=== PATIENT | male | born 1985 | race Caucasian/White ===

== ENCOUNTER 2017-05-08 11:00 | Emergency (ER) | payer SELFPAY ==
[~2017-05-08] VITALS: Ht 185.4 cm; Wt 120.9 kg
[2017-05-08 11:04] VITALS: TEMP 37.2; Ht 185.4 cm; Wt 120.9 kg
[2017-05-08] MEDS ORDERED: BUPR1SUB23 SL (11:17)
--- NOTE | 2017-05-08 11:42 | EMERGENCY ROOM VISIT NOTE ---
History Report prepared by Álvaro: Lydia Henry Under the Supervision of: Dr. Felice Huntley M.D. First contact with patient: 11:07 Chief Complaint: ILLNESS Stated Complaint: TICK BITE, FATIGUE History of Present Illness The patient is a 32 year old male who presents to the Emergency Room with complaints of a worsening illness for the past month. He states that he felt more fatigued and tired for the past month. This is very unusual for him. The patient is outside a lot and states that he has had about 20 ticks this past year. 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 He took doxycycline at that time. His current symptoms feel very similar to how he felt with Lyme disease. Source of History: patient Onset: 1 month ago Position: other (global) Quality: other (illness) Timing: worsening Associated Symptoms: + fatigue Review of Systems All systems have been listed, reviewed, and are negative other than those previously mentioned. Please see Additional Medical History Sheet. Past Medical & Surgical Medical Problems: (1) Up's palsy (2) Lyme disease Family History Hypertension Social History Smoking Status: Current Every Day Smoker Alcohol Use: none Marital Status: in relationship Housing Status: lives with significant other Occupation Status: employed Current/Historical Medications Scheduled Buprenorphine Hcl-Naloxone Hcl (Suboxone 8-2 Mg), 1 DOSE SL BID Allergies Uncoded Allergies: NKDA (Allergy, Mild, 04/26/08) Physical Exam Vital Signs Date Time Temp Pulse Resp B/P (MAP) Pulse Ox O2 Delivery O2 Flow Rate FiO2 05/08/17 11:57 74 18 149/96 99 05/08/17 11:04 37.2 86 18 176/94 98 Room Air Physical Exam GENERAL: Patient awake, alert, oriented x 3. Patient follows commands. Patient does not appear toxic. Patient is adequately hydrated and well- nourished. SKIN: No erythema, pallor, cyanosis or rash. No signs of any current insect infestation. HEENT: Normal head, pupils equal, reactive to light and accommodation. LUNGS: Clear to auscultation. No wheezes, no rales, no rhonchi. HEART: No murmurs. No gallops. No rubs ABDOMEN: Soft, non tender. EXTREMITIES: No signs of trauma. No pedal or pretibial edema. No calf or thigh tenderness. NEUROLOGIC: Cranial nerves II-XII within normal limits. No gross motor sensory function deficits. Medical Decision & Procedures Laboratory Results 05/08/17 11:30 Red Blood Count 4.97, Mean Corpuscular Volume 89.7, Mean Corpuscular Hemoglobin 32.8, Mean Corpuscular Hemoglobin Concent 36.5, Mean Platelet Volume 10.4, Neutrophils (%) (Auto) 54.5, Lymphocytes (%) (Auto) 33.4, Monocytes (%) (Auto) 8.0, Eosinophils (%) (Auto) 3.6, Basophils (%) (Auto) 0.3, Neutrophils # (Auto) 4.77, Lymphocytes # (Auto) 2.93, Monocytes # (Auto) 0.70, Eosinophils # (Auto) 0.32, Basophils # (Auto) 0.03 Test 05/08/17 11:30 White Blood Count 8.77 K/uL (4.8-10.8) Red Blood Count 4.97 M/uL (4.7-6.1) Hemoglobin 16.3 g/dL (14.0-18.0) Hematocrit 44.6 % (42-52) Mean Corpuscular Volume 89.7 fL (80-100) Mean Corpuscular Hemoglobin 32.8 pg (25-34) Mean Corpuscular Hemoglobin Concent 36.5 g/dl (32-36) Platelet Count 206 K/uL (130-400) Mean Platelet Volume 10.4 fL (7.4-10.4) Neutrophils (%) (Auto) 54.5 % Lymphocytes (%) (Auto) 33.4 % Monocytes (%) (Auto) 8.0 % Eosinophils (%) (Auto) 3.6 % Basophils (%) (Auto) 0.3 % Neutrophils # (Auto) 4.77 K/uL (1.4-6.5) Lymphocytes # (Auto) 2.93 K/uL (1.2-3.4) Monocytes # (Auto) 0.70 K/uL (0.11-0.59) Eosinophils # (Auto) 0.32 K/uL (0-0.5) Basophils # (Auto) 0.03 K/uL (0-0.2) RDW Standard Deviation 40.3 fL (36.4-46.3) RDW Coefficient of Variation 12.3 % (11.5-14.5) Immature Granulocyte % (Auto) 0.2 % Immature Granulocyte # (Auto) 0.02 K/uL (0.00-0.02) Lyme Disease IgG Antibody POS (NEG) Laboratory results as stated above per my review. ED Course 1107: Past medical records reviewed. The patient was evaluated in room A12B. A complete history and physical examination was performed. At this time I discussed the treatment plan with the patient. He expressed understanding and verbalized agreement. The patient will be discharged after blood work and we will call him with the results. Medical Decision Nurses notes reviewed. Medical history sheet reviewed. Differential diagnosis includes but is not limited to: tick bite, Lyme disease, anemia. 32-year-old male here with generalized malaise. The patient has a prior history of Lyme disease and Up's palsy. The patient is exposed to ticks frequently. The patient is concerned that he has another bout of Lyme disease. The patient does not want to wait for the results and we have agreed to call him with results. Examination is unremarkable. There are no signs of any rash or other signs of a tick infestation. Initial IgM and IgG for Lyme disease are positive. The patient has had Lyme disease in the past but this appears to be a new infection. The pharmacist will call in a prescription for the patient. In the meantime we await final results. The patient is to follow-up with his family physician. Medication Reconcilliation Current Medication List: was personally reviewed by me Blood Pressure Screening Patient's blood pressure: Elevated blood pressure Blood pressure disposition: Referred to PCP Impression Primary Impression: Lethargy Additional Impression: Lyme disease Scribe Attestation The scribe's documentation has been prepared under my direction and personally reviewed by me in its entirety. I confirm that the note above accurately reflects all work, treatment, procedures, and medical decision making performed by me. Departure Information Dispostion Home / Self-Care Referrals No Doctor, Assigned (PCP) Forms HOME CARE DOCUMENTATION FORM, IMPORTANT VISIT INFORMATION, WORK / SCHOOL INSTRUCTIONS Patient Instructions My [facility] Additional Instructions We will call you with any abnormal lab results that require treatment. Follow-up with your family physician/Suboxone physician. You may return to work today. Problem Qualifiers
[2017-05-08 11:44] LABS: BASO % 0.3 %; BASO ABS # 0.03 K/uL (0-0.2); COMPLETE YES; EOS % 3.6 %; HEMATOCRIT 44.6 % (42-52); IG% 0.2 %; LYMPH % 33.4 %; LYMPH ABS # 2.93 K/uL (1.2-3.4); MEAN CELL VOLUME 89.7 fL (80-100); MEAN CORPUSCULAR HEMOGLOBIN 32.8 pg (25-34); MEAN CORPUSCULAR HGB CONC 36.5 g/dl (32-36); MEAN PLATELET VOLUME 10.4 fL (7.4-10.4); NEUT % 54.5 %; PLATELET COUNT 206 K/uL (130-400); RED BLOOD COUNT 4.97 M/uL (4.7-6.1); WHITE BLOOD COUNT 8.77 K/uL (4.8-10.8)
[2017-05-08 11:57] VITALS: BP 149/96; PULSE 74; O2SAT 99
[2017-05-08 12:47] LABS: LYME DISEASE AB IGG POS (NEG); LYME DISEASE AB IGM POS (NEG)
--- NOTE | 2017-05-08 15:32 | Pharmacy Progress Note ---
ED Pharmacist Progress Note Date of Service: May 08, 2017. Patient with positive IgG and IgM titers for lymes disease, with history of lymes in the past. Patient also has no insurance but called the patient's preffered pharmacy and verified RX would be less than 30 dollars. Therefore, I called in an RX for doxycycline [facility]mg [facility] after discussing with the patient and Dr. Huntley.
[2017-05-13 09:49] LABS: 18KDIGG BAND REACTIVE (NONREACTIVE); 23KDIGG BAND REACTIVE (NONREACTIVE); 23KDIGM BAND REACTIVE (NONREACTIVE); 28KDIGG BAND NONREACTIVE (NONREACTIVE); 30KDIGG BAND NONREACTIVE (NONREACTIVE); 39KDIGG BAND NONREACTIVE (NONREACTIVE); 39KDIGM BAND NONREACTIVE (NONREACTIVE); 41KDIGG BAND REACTIVE (NONREACTIVE); 41KDIGM BAND NONREACTIVE (NONREACTIVE); 45KDIGG BAND NONREACTIVE (NONREACTIVE); 58KDIGG BAND NONREACTIVE (NONREACTIVE); 66KDIGG BAND NONREACTIVE (NONREACTIVE); 93KDIGG BAND NONREACTIVE (NONREACTIVE)
== END 2017-05-08 11:58 | disposition home or self-care (01) ==
LOC: C.EDB 11:02 → C.EDA 11:58
DX: A69.20 Lyme disease, unspecified (principal); R53.1 Weakness; G51.0 Bell's palsy; F17.200 Nicotine dependence, unspecified, uncomplicated; Z82.49 Family history of ischemic heart disease and other diseases of the circulatory system